=== PATIENT | male | born 2005 | race Caucasian/White ===

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

== ENCOUNTER 2024-01-06 23:15 | Emergency (ER) | payer OTHER ==
[~2024-01-06] VITALS: Ht 165.1 cm; Wt 76.7 kg
[2024-01-06 23:26] VITALS: BP 142/97; PULSE 110; RESP 16; TEMP 97.7; O2SAT 98
[2024-01-06 23:29] VITALS: O2SAT 99
[2024-01-07 03:01] LABS: APPEARANCE,URINE CLEAR (CLEAR); BILIRUBIN,URINE NEGATIVE (NEGATIVE); BLOOD, URINE NEGATIVE (NEGATIVE); COLOR,URINE YELLOW (YELLOW); LEUKOCYTE ESTERASE ,URINE NEGATIVE (NEGATIVE); NITRITE, URINE NEGATIVE (NEGATIVE); PROTEIN,URINE NEGATIVE (NEGATIVE); UGLUCOSE NEGATIVE (NEGATIVE); UROBILINOGEN,URINE 0.2 EU/dL (0.2 - 1)
[2024-01-07] MEDS ORDERED: LEVO-481 PO (03:20)
[2024-01-07 03:27] VITALS: BP 117/69; PULSE 92; RESP 17; TEMP 97.7; O2SAT 99
== END 2024-01-07 03:27 | disposition home or self-care (01) ==
LOC: MED 23:15
DX: N45.1 Epididymitis (principal); Z79.899 Other long term (current) drug therapy
CPT/HCPCS: 76870; 81003; 99284